=== PATIENT | female | born 1980 | race Caucasian/White ===

== ENCOUNTER 2020-03-09 12:14 | Outpatient (CLI) | payer OTHER, SELFPAY ==
[2020-03-09 12:53] LABS: Hemoglobin A1C 4.9 % (<5.7)
[2020-03-09 13:10] LABS: Beta HCG Quantitative < 2.39 mIU/ML
[2020-03-13 15:31] LABS: DHEA-Sulfate 213 mcg/dL (23-266)
[2020-03-14 05:10] LABS: Insulin Level Total 12.8 uIU/mL (<=19.6)
[2020-03-14 18:32] LABS: Estradiol, Ultrasensitive 16 pg/mL
[2020-03-15 10:02] LABS: Testosterone Free 3.3 pg/mL (0.1-6.4); Testosterone Total 31 ng/dL (2-45)
[2020-03-17 12:56] LABS: FSH 40.4 mIU/mL (***); LH 20.2 mIU/mL (***); Progesterone 0.3 ng/mL (***); Prolactin 4.8 ng/mL (***)
== END 2020-03-09 12:15 | disposition home or self-care (01) ==
PROVIDERS: Visit Provider Nurse Practitioner
DX: N91.2 Amenorrhea, unspecified (principal)
CPT/HCPCS: 36415; 82627; 82670; 83001; 83002; 83036; 83525; 84144; 84146; 84402; 84403; 84443; 84702

== ENCOUNTER 2020-03-12 15:16 | Outpatient (CLI) | payer OTHER, SELFPAY ==
--- NOTE | ~2020-03-12 | US_ITS ---
EXAMINATION: US pelvic complete w TV DATE: 03/12/2020 16:01 INDICATION: Amenorrhea Comparison:Ultrasound dated 08/24/2013 TECHNIQUE: Multiple transabdominal and endovaginal sonographic images of the pelvis performed. FINDINGS: The uterus measures 6.3 x 2.9 x 3.9 cm. The endometrial complex measures 5 mm. The ovaries are not visualized. Study limited by patient body habitus. There is no free fluid in the pelvis. There are no abnormal masses seen on either side. IMPRESSION: 1. Unremarkable pelvic ultrasound. Study limited by patient body habitus. Reviewed, dictated and finalized at location A.
== END 2020-03-12 15:17 | disposition home or self-care (01) ==
PROVIDERS: Visit Provider Nurse Practitioner
DX: N91.2 Amenorrhea, unspecified (principal)
CPT/HCPCS: 76830; 76856

== ENCOUNTER 2023-07-20 10:13 | Outpatient (CLI) | payer OTHER, SELFPAY ==
[2023-07-20 10:55] LABS: Hematocrit 41.8 % (37.0-47.0); Hemoglobin 13.6 g/dL (12.0-15.0); Mean Corpuscular HGB Conc 32.5 g/dl (32-36); Mean Corpuscular Hemoglobin 29.8 pg (26-34); Mean Corpuscular Volume 91.5 fl (80-100); Mean Platelet Volume 9.1 fl (7.4-10.4); Platelet Count Result 312 k/mm3 (150-375); Red Blood Count 4.57 M/mm3 (4.2-5.4); Red Cell Distribution Width 13.7 % (11.5-14.5); White Blood Count 7.4 K/mm3 (4.5-10.0)
[2023-07-20 11:13] LABS: Hemoglobin A1C 5.1 % (<5.7)
[2023-07-20 11:58] LABS: Alanine Aminotransferase 47 U/L (6-35); Albumin Level 4.2 g/dL (3.5-5.1); Alkaline Phosphatase 106 U/L (38-126); Anion Gap 3 mmol/L (8-16); Aspartate Amino Transferase 47 U/L (14-36); Bilirubin,Total 0.6 mg/dL (0.2-1.3); Blood Urea Nitrogen 10 mg/dL (7-17); Calcium 9.5 mg/dL (8.4-10.2); Carbon Dioxide 29 mmol/L (22-30); Chloride 106 mmol/L (98-107); Cholesterol 198 mg/dL (0-200); Estimated Glomerular Filt Rate > 60; Glucose 100 mg/dL (65-110); HDL Direct 50 mg/dL; Potassium 4.4 mmol/L (3.4-5.0); Sodium 138 mmol/L (137-145); Triglycerides 94 mg/dL (<150)
[2023-07-20 12:04] LABS: Vitamin D 25 Hydroxy < 12.8 ng/mL
[2023-07-20 12:11] LABS: LDL Cholesterol Direct 124 mg/dL
[2023-07-20 12:14] LABS: Beta HCG Quantitative < 2.39 mIU/ML
[2023-07-23 06:45] LABS: Insulin Level Total 13.3 uIU/mL (<=18.4)
[2023-07-24 12:05] LABS: Free T4 Free Thyroxine 0.49 ng/mL (0.78-2.19)
[2023-07-25 03:16] LABS: DHEA-Sulfate 113 mcg/dL (19-231); FSH 19.9 mIU/mL (***); LH 6.2 mIU/mL (***); Progesterone 0.3 ng/mL (***); Prolactin 4.6 ng/mL (***)
[2023-07-25 03:54] LABS: Testosterone Free 3.8 pg/mL (0.2-5.0)
[2023-07-26 20:28] LABS: Estradiol, Ultrasensitive 30 pg/mL
== END 2023-07-20 10:14 | disposition home or self-care (01) ==
LOC: ANHLAB 10:15
PROVIDERS: Visit Provider Obstetrics & Gynecology Gynecology
DX: Z01.419 Encounter for gynecological examination (general) (routine) without abnormal findings (principal); E28.2 Polycystic ovarian syndrome
CPT/HCPCS: 36415; 80053; 80061; 82306; 82607; 82627; 82670; 83001; 83002; 83036; 83525; 84144; 84146; 84402; 84439; 84443; 84702; 85027

== ENCOUNTER 2024-01-03 16:51 | Outpatient (CLI) | payer OTHER, SELFPAY ==
[2024-01-03 17:53] LABS: Free T4 Free Thyroxine 0.71 ng/mL (0.78-2.19)
[2024-01-03 20:07] LABS: Total Triiodothyronine (T3) 1.38 NG/ML (0.97-1.69)
[2024-01-05 10:29] LABS: Thyroid Peroxidase Antibodies 231 IU/mL (<9)
== END 2024-01-03 16:52 | disposition home or self-care (01) ==
LOC: ANHLAB 16:54
PROVIDERS: PCP Family Medicine; Visit Provider Family Medicine
DX: E03.9 Hypothyroidism, unspecified (principal); E07.9 Disorder of thyroid, unspecified
CPT/HCPCS: 36415; 84439; 84443; 84480; 86376

== ENCOUNTER 2024-01-04 17:04 | Outpatient (CLI) | payer OTHER, SELFPAY ==
[2024-01-04 18:01] LABS: Alanine Aminotransferase 23 U/L (6-35); Aspartate Amino Transferase 28 U/L (14-36)
== END 2024-01-04 17:05 | disposition home or self-care (01) ==
LOC: ANHLAB 17:09
PROVIDERS: PCP Family Medicine; Visit Provider Family Medicine
DX: R74.8 Abnormal levels of other serum enzymes (principal)
CPT/HCPCS: 36415; 84450; 84460

== ENCOUNTER 2024-01-18 16:51 | Outpatient (CLI) | payer OTHER, SELFPAY ==
--- NOTE | ~2024-01-18 | US_ITS ---
EXAMINATION: US thyroid DATE: 01/18/2024 17:30 INDICATION: Nontoxic goiter, unspecified. TECHNIQUE: Multiple ultrasound images of the thyroid were obtained. COMPARISON: None. FINDINGS: The right thyroid lobe measures 5.1 x 1.8 x 1.7 cm. The left thyroid lobe measures 4.6 x 1.5 x 2.1 c m. There is normal echotexture and echogenicity throughout the thyroid gland. No discrete nodules id entified. Normal vascular flow is present. IMPRESSION: 1. Normal thyroid. Reviewed, dictated and finalized at location A. IMPRESSION: 1. Normal thyroid.
== END 2024-01-18 16:52 | disposition home or self-care (01) ==
LOC: ANHIMG 16:52
PROVIDERS: PCP Family Medicine; Visit Provider Physician Assistant
DX: E04.9 Nontoxic goiter, unspecified (principal)
CPT/HCPCS: 76536

== ENCOUNTER 2024-01-24 16:54 | Outpatient (CLI) | payer OTHER, SELFPAY ==
[2024-01-26 04:24] LABS: ANA Cascade Screen NEGATIVE (NEGATIVE)
== END 2024-01-24 16:55 | disposition home or self-care (01) ==
LOC: ANHLAB 16:56
PROVIDERS: PCP Family Medicine; Visit Provider Physician Assistant
DX: R53.83 Other fatigue (principal); R21 Rash and other nonspecific skin eruption
CPT/HCPCS: 36415; 86038; 86225; 86235; 86364

== ENCOUNTER 2024-02-14 13:59 | Outpatient (CLI) | payer OTHER, SELFPAY ==
[2024-02-14 15:33] LABS: Thyroid Stimulating Hormone 0.929 uIU/mL (0.465-4.680)
[2024-02-14 15:41] LABS: Free T4 Free Thyroxine 1.21 ng/mL (0.78-2.19)
== END 2024-02-14 14:00 | disposition home or self-care (01) ==
PROVIDERS: PCP Family Medicine; Visit Provider Physician Assistant
DX: E03.9 Hypothyroidism, unspecified (principal)
CPT/HCPCS: 36415; 84439; 84443

== ENCOUNTER 2024-04-01 17:03 | Outpatient (CLI) | payer OTHER, SELFPAY ==
[2024-04-01 17:47] LABS: Basophils Absolute Auto 0.1 K/mm3 (0.0-0.1); Basophils Percent Auto 0.8 % (0.2-1.2); Eosinophils Absolute Auto 0.2 K/mm3 (0-0.3); Eosinophils Percent Auto 2.1 % (0-4.4); Hematocrit 39.8 % (37.0-47.0); Immature Granulocyte Absolute 0.06 K/mm3 (0.00-0.031); Immature Granulocyte Percent A 0.7 % (0-0.5); Lymphocytes Absolute Auto 2.44 K/mm3 (0.9-3.2); Lymphocytes Percent Auto 26.9 % (18.3-44.2); Mean Corpuscular HGB Conc 32.7 g/dl (32-36); Mean Corpuscular Hemoglobin 30.2 pg (26-34); Mean Corpuscular Volume 92.3 fl (80-100); Mean Platelet Volume 9.2 fl (7.4-10.4); Monocytes Absolute Auto 0.7 K/mm3 (0.1-0.6); Monocytes Percent Auto 7.3 % (2.6-8.5); Neutrophils Absolute Auto 5.7 K/mm3 (1.3-6.7); Neutrophils Percent Auto 62.2 % (45.5-73.1); Platelet Count Result 310 k/mm3 (150-375); Red Blood Count 4.31 M/mm3 (4.2-5.4); Red Cell Distribution Width 13.1 % (11.5-14.5); White Blood Count 9.1 K/mm3 (4.5-10.0)
[2024-04-01 17:54] LABS: Alanine Aminotransferase 41 U/L (6-35); Albumin Level 4.6 g/dL (3.5-5.1); Alkaline Phosphatase 100 U/L (38-126); Anion Gap 8 mmol/L (4-12); Aspartate Amino Transferase 40 U/L (14-36); Bilirubin,Total 0.8 mg/dL (0.2-1.3); Blood Urea Nitrogen 15 mg/dL (7-17); Calcium 9.8 mg/dL (8.4-10.2); Carbon Dioxide 29 mmol/L (22-30); Chloride 102 mmol/L (98-107); Estimated Glomerular Filt Rate > 60; Glucose 79 mg/dL (65-110); Potassium 4.1 mmol/L (3.4-5.0); Sodium 139 mmol/L (137-145)
[2024-04-01 18:42] LABS: Free T4 Free Thyroxine 0.81 ng/mL (0.78-2.19)
[2024-04-03 08:17] LABS: Thyroid Peroxidase Antibodies 104 IU/mL (<9)
[2024-04-03 19:44] LABS: Triiodothyronine T3 Free 3.1 pg/mL (2.3-4.2)
[2024-04-04 04:17] LABS: Immunoglobulin A 280 mg/dL (47-310); TTG IGA AB <1.0 U/mL
== END 2024-04-01 17:04 | disposition home or self-care (01) ==
LOC: ANHLAB 17:05
PROVIDERS: PCP Family Medicine; Visit Provider Physician Assistant
DX: R21 Rash and other nonspecific skin eruption (principal); E07.9 Disorder of thyroid, unspecified
CPT/HCPCS: 36415; 80053; 82784; 84439; 84443; 84481; 85025; 86364; 86376

== ENCOUNTER 2024-04-09 08:24 | Outpatient (CLI) | payer OTHER, SELFPAY ==
[2024-04-09 12:51] LABS: Cortisol Random 9.53 ug/dL
== END 2024-04-09 08:25 | disposition home or self-care (01) ==
LOC: ANHGOSHLAB 08:26
PROVIDERS: PCP Family Medicine
DX: E07.9 Disorder of thyroid, unspecified (principal)
CPT/HCPCS: 36415; 82024; 82533

== ENCOUNTER 2024-06-13 14:27 | Outpatient (CLI) | payer OTHER, SELFPAY ==
--- OUTSIDE RECORDS SUMMARY | 2024-06-13 15:04 | XMS_ITS | Clinical Summary ---
Author Organization [facility] Address [address] [place] [address]. [place] [address] [place] [address] Care Team Providers Care Cashier Host/Hostess Name Role Phone None, Provider MD Primary Care Provider Unavaila ble Allergies No known active allergies Medications albuterol sulfate HFA 108 (90 Base) MCG/ACT inhaler Inhale 2 puffs into the lungs every 6 (six) hours as needed for Wheezing. 8 g 03/28/2023 Active Social History Tobacco Use Types Packs/Day Years Used Date Smoking Tobacco: Never Smokeless Tobacco: Never Tobacco Cessation:Counseling Given: Not Answered Alcohol Use Standard Drinks/Week Comments Not Currently 0 (1 standard drink = 0.6 oz pur e alcohol) RARELY Comments Unknown Sex and Gender Information Value Date Recorded Sex Assigned at Not on file Legal Sex Female 8:25 PM CDT Gender Identity Not on file Sexual Orientation Not on file Last Filed Vital Signs Vital Sign Reading Time Taken Comments Blood Pressure 127/106 03/28/2023 12:41 PM [employer]PING [employer] SUPER[employer]OR Pulse 99 03/28/2023 12:41 PM [employer]PING [employer] SUPER[employer] Temperature 36.9 ??C (98.5 ??F) 03/28/2023 1 2:41 PM [employer]PING [employer] SUPER[employer]OR Respiratory Rate 20 03/28/2023 12:4 1 PM [employer]PING [employer]OR Oxygen Saturation 99% 03/28/2023 12: 41 PM [employer]PING TR[employer] SUPER[employer]OR Inhaled Oxygen Concentration - - Weight 136.8 kg (301 lb 9.4 oz) 023 12:43 PM [employer]PING [employer] SUPERVISOR Height 160 cm (5' 3 ) 03/28/2023 12:41 PM [employer]IPPING TR[employer] SUPERVISOR Body Mass Index 53.42 03/28/2023 12:41 PM [employer]PING TR[employer] SUPERVISOR Plan of Treatment Health Maintenance Due Date Last Done Comments Cervical Cancer Screening Pa p Smear (Age 30 to 64) Every 3 Years 1981 Annual Physical 1984 Hepatitis C 1999 DTaP, Tdap and Td Vaccines ( 1 - Tdap) 2000 Hepatitis B Vaccines (1 of 3 - 19+ 3-dose series) 2000 Cervical Cancer Screening Pa p with HPV Testing (Age 30 to 64) Every 5 Years 2011 Cervical Cancer Screening with HPV 2011 Mammogram Screening 2021 COVID-19 Vaccine (1 - 2023-2 5 season) 2024 Influenza Adult (#1) 2024 HPV Vaccines Aged Out No longer eligi ble based on patient's age to complete this topic Meningococcal B Vaccine Aged Out No l onger eligible based on patient's age to complete this topic Meningococcal Vaccine Aged Out No jaciel pasha eligible based on patient's age to complete this topic Pneumococcal Vaccine: Pediat rics (0 to 5 Years) and At-Risk Patients (6 to 64 Years) Aged Out No longer eligible b ased on patient's age to complete this topic RSV Immunizations Under 20 Months Aged Out No longer eligible based on patient's age to complete this topic Insurance Care Teams Cashier Host/Hostess Relationship Specialty Start Date End Date None, Provider, PCP - General 05/26/21
--- OUTSIDE RECORDS SUMMARY | 2024-06-13 15:04 | XMS_ITS | Referral Summary ---
Author Organization [facility] Address [address] [facility] [address] [place] [address] Phone Care Team Providers Care Political Organizer Name Role Phone Kristen Brown Primary Care Provid er Encounters Date Type Department Care Team Description 04/18/2024 Orders Only [facility] Endocrinology Metabolism and Lipid [address] [facility] 13th [place] [address] [place] [address] ProviderOrlando MD 04/17/2024 Orders Only [facility] Endocrinology Metabolism and Lipid 1 [facility] [address] [place] [phone] Irene Mcdaniel MD PhD Low serum cortisol level (Primary Dx) 04/16/2024 Orders Only [facility] Endocrinology Metabolism and Lipid 1 [facility] [address] [place] [address] Orlando Oscar MD 04/15/2024 Telephone [facility] Dermatology [address] [facility] [address] [place] [address] Jennifer Estrada, YVONNE Email from Dr. Linette Schultz-John octavio appt 04/10/2024 Telephone [facility] Endocrinology Metabolism and Lipid [address] [facility] 13th [place] [address] [place] [address] Gregoria Shepherd RN lab request sent 04/08/2024 1:40 PM SPINNING MACHINE OPERATOR Lab [facility] [address] [place] [address] Disorder of thyroid; Rash 04/08/2024 10:00 AM SPINNING MACHINE OPERATOR Office Visit [facility] Endocrinology Metabolism and Lipid [address] [facility] 13th [place] [address] [place] [address] Irene Mcdaniel MD PhD Rash (Primary Dx); Disorder of thyroid from Last 3 Months Allergies No known active allergies Medications cetirizine (ZyrTEC) 10 mg tablet TAKE 1 TABLET BY MOUTH TWICE DAILY NEEDED FOR ALLERGIES 4 Active clobetasoL (TEMOVATE) 0.05 % cream APPLY CREAM TOPICALLY TO AFFECTED AREAS OF THE LEGS ONE TO TWO TIMES DAILY (A TOTAL OF 2 GRAMS DAILY) FOR UP TO 2 CONSECUTIVE WEEKS, THEN TAKE A BREAK FOR 1-2 DAYS AND RESUME. AVOID FACE, ARMPIT, AND GROIN 4 Active hydrOXYzine (ATARAX) 25 mg tablet TAKE 1 TABLET BY MOUTH THREE TIMES DAILY NEEDED FOR ITCHING 4 Active COMMUNITY ADVOCATE Thyroid 30 mg tablet Take 1 tablet (30 mg total) by mouth daily 4 Active ergocalciferol (VITAMIN D) 50,000 unit capsuleIndicati ons:Disorder of thyroid Take 1 capsule (50,000 Units total) by mouth once a week 4 capsule 2 4 07/01/19 Active Active Problems Problem Noted Date Diagnosed Date Low serum cortisol level 04/17/2024 Social History Tobacco Use Types Packs/Day Years Used Date Smoking Tobacco: Never Smokeless Tobacco: Never Tobacco Cessation:Counseling Given: No Comments Unknown Sex and Gender Information Value Date Recorded Sex Assigned at Not on file Legal Sex Female 6:31 AM CDT Gender Identity Not on file Sexual Orientation Not on file Last Filed Vital Signs Vital Sign Reading Time Taken Comments Blood Pressure 116/84 04/08/2024 9:50 AM SPINNING MACHINE OPERATOR Pulse 70 04/08/2024 9:50 AM SPINNING MACHINE OPERATOR Temperature 36.7 ??C (98.1 ??F) 04/08/2024 9:50 AM CS T Respiratory Rate - - Oxygen Saturation - - Inhaled Oxygen Concentration - - Weight 131.2 kg (289 lb 3.2 oz) 04/08/2024 9:50 AM SPINNING MACHINE OPERATOR Height 160 cm (5' 3 ) 04/08/2024 9:50 AM SPINNING MACHINE OPERATOR Body Mass Index 51.23 04/08/2024 9:50 AM SPINNING MACHINE OPERATOR Plan of Treatment Not on file Procedures Procedure Name Priority Date/Time Associated Diagnosis Comments ADRENOCORTICOTROPIC HORMONE (ACTH) Routine 04/18/2024 3:07 PM SPINNING MACHINE OPERATOR DHEA Routine 04/16/2024 12:44 PM SPINNING MACHINE OPERATOR PROGESTERONE Routine 04/16/2024 12:44 PM SPINNING MACHINE OPERATOR LH - LUTEINIZING HORMONE, SERUM Routine 04/16/2024 12:44 PM SPINNING MACHINE OPERATOR INSULIN, TOTAL Routine 04/16/2024 12:44 PM SPINNING MACHINE OPERATOR HBA1C - HEMOGLOBIN A1C Routine 12:44 PM SPINNING MACHINE OPERATOR ACTH RANDOM - CORTROSYN STIMULATION TEST Routine 04/16/2024 12:44 PM SPINNING MACHINE OPERATOR CORTISOL Routine 04/16/2024 12:44 PM SPINNING MACHINE OPERATOR THYROID PEROXIDASE ANTIBODIES Routine 04/16/2024 12:44 PM SPINNING MACHINE OPERATOR CELIAC DISEASE COMPLETE PANEL Routine 04/16/2024 12:44 PM SPINNING MACHINE OPERATOR CBC WITH DIFFERENTIAL Routine 04/16/2024 12:41 PM SPINNING MACHINE OPERATOR CMP Routine 04/16/2024 12:41 PM SPINNING MACHINE OPERATOR LIPID PANEL Routine 04/16/2024 12:41 PM SPINNING MACHINE OPERATOR TESTOSTERONE, FREE AND TOTAL, SERUM Routine 04/16/2024 12:41 PM SPINNING MACHINE OPERATOR LH - LUTEINIZING HORMONE, SERUM Routine 04/16/2024 12:41 PM SPINNING MACHINE OPERATOR CORTISOL Routine 04/09/2024 12:36 PM SPINNING MACHINE OPERATOR Disorder of thyroid METANEPHRINES, FRACTIONATED FREE, BLOOD Routine 04/08/2024 12:09 PM SPINNING MACHINE OPERATOR Rash TESTOSTERONE, TOTAL AND FREE, SERUM Routine 04/08/2024 12:09 PM SPINNING MACHINE OPERATOR Disorder of thyroid PROLACTIN Routine 04/08/2024 12:09 PM SPINNING MACHINE OPERATOR Disorder of thyroid LIPID PANEL Routine 04/08/2024 12:09 PM SPINNING MACHINE OPERATOR Disorder of thyroid DHEA-SULFATE Routine 04/08/2024 12:09 PM SPINNING MACHINE OPERATOR Disorder of thyroid ANDROSTENEDIONE Routine 04/08/2024 12:09 PM SPINNING MACHINE OPERATOR Disorder of thyroid 17 HYDROXYPROGESTERONE Routine 12:09 PM SPINNING MACHINE OPERATOR Disorder of thyroid ESTRADIOL Routine 04/08/2024 12:09 PM SPINNING MACHINE OPERATOR Disorder of thyroid T4, FREE Routine 04/08/2024 12:09 PM SPINNING MACHINE OPERATOR Disorder of thyroid THYROID FUNCTION CASCADE Routine 024 12:09 PM SPINNING MACHINE OPERATOR Disorder of thyroid FOLLICLE STIMULATING HORMONE Routine 04/08/2024 12:09 PM SPINNING MACHINE OPERATOR Disorder of thyroid LUTEINIZING HORMONE (LH) Routine 024 12:09 PM SPINNING MACHINE OPERATOR Disorder of thyroid from Last 3 Months Results * Adrenocorticotropic Hormone (ACTH) (04/18/2024 3:07 PM SPINNING MACHINE OPERATOR) [facility] Provider MD LAB BLOOD ORDERABLES Brigette l Result Performing Organization Address [facility] de Phone Number EXTERNAL LAB * Celiac Disease Complete Panel (04/16/2024 12:44 PM SPINNING MACHINE OPERATOR) [facility] Provider MD LAB BLOOD ORDERABLES Brigette l Result Performing Organization Address [facility] de Phone Number EXTERNAL LAB * Thyroid Peroxidase Antibodies (04/16/2024 12:44 PM SPINNING MACHINE OPERATOR) [facility] Provider MD LAB BLOOD ORDERABLES Brigette l Result Performing Organization Address [facility] de Phone Number EXTERNAL LAB * LH - Luteinizing Hormone, Serum (04/16/2024 12:44 PM SPINNING MACHINE OPERATOR) [facility] Provider MD LAB BLOOD ORDERABLES Brigette l Result * HbA1c - Hemoglobin A1C (04/16/2024 12:44 PM SPINNING MACHINE OPERATOR) [facility] Provider MD LAB BLOOD ORDERABLES Brigette l Result * ACTH Random - Cortrosyn Stimulation Test (04/16/2024 12:44 PM SPINNING MACHINE OPERATOR) Result [facility] Provider MD LAB BLOOD ORDERABLES Brigette l Result * Progesterone (04/16/2024 12:44 PM SPINNING MACHINE OPERATOR) Blood Result [facility] Provider MD LAB BLOOD ORDERABLES Brigette l Result * Insulin, total (04/16/2024 12:44 PM SPINNING MACHINE OPERATOR) Blood Result [facility] Provider MD LAB BLOOD ORDERABLES Brigette l Result * DHEA (04/16/2024 12:44 PM SPINNING MACHINE OPERATOR) Blood Result [facility] MD LAB BLOOD ORDERABLES Brigette l Result * Cortisol (04/16/2024 12:44 PM SPINNING MACHINE OPERATOR) Blood Result [facility] MD LAB BLOOD ORDERABLES Brigette l Result Performing Organization Address [facility] Co de Phone Number EXTERNAL LAB * Testosterone, Free and Total, Serum (04/16/2024 12:41 PM SPINNING MACHINE OPERATOR) Result [facility] MD LAB BLOOD ORDERABLES Brigette l Result Performing Organization Address [facility] Co de Phone Number EXTERNAL LAB * LH - Luteinizing Hormone, Serum (04/16/2024 12:41 PM SPINNING MACHINE OPERATOR) Result [facility] Provider MD LAB BLOOD ORDERABLES Brigette l Result EXTERNAL LAB * CMP (04/16/2024 12:41 PM SPINNING MACHINE OPERATOR) Result [facility] MD LAB BLOOD ORDERABLES Brigette l Result Performing Organization Address [facility]/ZIP Co de Phone Number EXTERNAL LAB * CBC with Differential (04/16/2024 12:41 PM SPINNING MACHINE OPERATOR) Historical Provider MD LAB BLOOD ORDERABLES Brigette l Result EXTERNAL LAB * Lipid panel (04/16/2024 12:41 PM SPINNING MACHINE OPERATOR) Blood Historical Provider MD LAB BLOOD ORDERABLES Brigette l Result Performing Organization Address [facility]/ZIP Co de Phone Number EXTERNAL LAB * Cortisol (04/09/2024 12:36 PM SPINNING MACHINE OPERATOR) Blood Irene Blood MD PhD LAB BLOOD ORDERABLES Final Result Performing Organization Address [facility] Co de Phone Number EXTERNAL LAB * Metanephrines, fractionated free, blood (04/08/2024 12:09 PM SPINNING MACHINE OPERATOR) Metanephrines <0.20 <0.50 nmol/L [place] [facility] Comment: ADDITIONAL INFORMATION This test was developed and its performance characteristics determined by [facility] in a manner consistent with CLIA requirements. This test has not been cleared or approved by the U.S. Food and Drug Administration. Test Performed by: [facility] [place] [address] Inspector Filter Tip: Dalila Nicholson Ph.D.; CLIA# [id number] Normetanephrines 0.55 <0.90 nmol/L [facility] Blood 04/08/2024 12:0 9 PM SPINNING MACHINE OPERATOR 04/08/2024 12:43 PM SPINNING MACHINE OPERATOR Irene Blood MD PhD LAB BLOOD ORDERABLES Final Result Performing Organization Address [facility] Co de Phone Number [facility] [place] [address] [facility] ref [facility] * (ABNORMAL) Thyroid Function Willard (04/08/2024 12:09 PM SPINNING MACHINE OPERATOR) TSH 5.58(H) 0.30 - 4.20 mcIUnit/mL Blood 04/08/2024 12:0 9 PM SPINNING MACHINE OPERATOR 04/08/2024 12:43 PM SPINNING MACHINE OPERATOR Irene Blood MD PhD LAB BLOOD ORDERABLES Final Result Performing Organization Address [facility]/ZIP Co de Phone Number EBER [facility] [place] [address] * 17-Hydroxyprogesterone (04/08/2024 12:09 PM SPINNING MACHINE OPERATOR) 17-hydroxyprogestero ne <40 ng/dL [facility] Comment: REFERENCE VALUE < 80 (Follicular) <285 (Luteal) < 51 (Postmenopausal) ADDITIONAL INFORMATION This test was developed and its performance characteristics determined by [facility] in a manner consistent with CLIA requirements. This test has not been cleared or approved by the U.S. Food and Drug Administration. Test Performed by: [facility] [place] [address] Inspector Filter Tip: Dalila Nicholson Ph.D.; CLIA# [id number] Blood 04/08/2024 12:0 9 PM SPINNING MACHINE OPERATOR 04/08/2024 12:51 PM SPINNING MACHINE OPERATOR Irene Blood MD PhD LAB BLOOD ORDERABLES Final Result Performing Organization Address [facility]/ZIP Co de Phone Number E[facility] [place] [address] [facility] ref [facility] * (ABNORMAL) Prolactin (04/08/2024 12:09 PM SPINNING MACHINE OPERATOR) Prolactin 4.7(L) 4.8 - 23.3 ng/mL Blood 04/08/2024 12:0 9 PM SPINNING MACHINE OPERATOR 04/08/2024 12:43 PM SPINNING MACHINE OPERATOR Irene Blood MD PhD LAB BLOOD ORDERABLES Final Result Performing Organization Address [facility] Co de Phone Number [facility] [place] [address] * DHEA-sulfate (04/08/2024 12:09 PM SPINNING MACHINE OPERATOR) Pathologist [facility] DHEA-S 116.0 60.9 - 337.0 mcg/dL Blood 04/08/2024 12:0 9 PM SPINNING MACHINE OPERATOR 04/08/2024 12:43 PM SPINNING MACHINE OPERATOR Irene Blood MD PhD LAB BLOOD ORDERABLES Final Result Performing Organization Address [facility] de Phone Number [facility] [place] [address] * Estradiol (04/08/2024 12:09 PM SPINNING MACHINE OPERATOR) Pathologist [facility] Estradiol 14.9 pg/mL Comment: Interpretive Data Males: 11 ? 43 pg/mL Females: Premenopausal: 31 ? 533 pg/mL Postmenopausal: < 50 pg/mL Patients treated with Fluvestrant (Faslodex) should be tested using an alternate assay such as LC-MS due to potential for cross-reactivity. Estradiol varies widely throughout the menstrual cycle. Current interpretive data was last revised 2024. Blood 04/08/2024 12:0 9 PM SPINNING MACHINE OPERATOR 04/08/2024 12:43 PM SPINNING MACHINE OPERATOR Irene Blood MD PhD LAB BLOOD ORDERABLES Final Result Performing Organization Address [facility] Co de Phone Number [facility] [place] [address] * Androstenedione (04/08/2024 12:09 PM SPINNING MACHINE OPERATOR) Androstenedione 74 30 - 200 ng/dL [place] ref [facility] Comment: ADDITIONAL INFORMATION This test was developed and its performance characteristics determined by [facility] in a manner consistent with CLIA requirements. This test has not been cleared or approved by the U.S. Food and Drug Administration. Test Performed by: [facility] [address] Inspector Filter Tip: Dalila Nicholson Ph.D.; CLIA# [id number] Blood 04/08/2024 12:0 9 PM SPINNING MACHINE OPERATOR 04/08/2024 1:59 PM SPINNING MACHINE OPERATOR Irene Blood MD PhD LAB BLOOD ORDERABLES Final Result Performing Organization Address [facility] Co de Phone Number [facility] [place] [address] [facility] * Testosterone, Total and Free, Serum (04/08/2024 12:09 PM SPINNING MACHINE OPERATOR) Testosterone 32 8 - 60 ng/dL [place] ref [facility] Comment: ADDITIONAL INFORMATION Testing performed by Liquid Chromatography-Tandem Mass Spectrometry (LC-MS/MS). This test was developed and its performance characteristics determined by [facility] in a manner consistent with CLIA requirements. This test has not been cleared or approved by the U.S. Food and Drug Administration. Test Performed by: [facility] [place] [address] Inspector Filter Tip: Dalila Nicholson Ph.D.; CLIA# [id number] Testosterone, free 0.59 <0.13 - 0.98 ng/dL [facility] Comment: ADDITIONAL INFORMATION This test was developed and its performance characteristics determined by [facility] in a manner consistent with CLIA requirements. This test has not been cleared or approved by the U.S. Food and Drug Administration. Blood 04/08/2024 12:0 9 PM SPINNING MACHINE OPERATOR 04/08/2024 1:57 PM SPINNING MACHINE OPERATOR Irene Blood MD PhD LAB BLOOD ORDERABLES Final Result Performing Organization Address [facility]/ZIP Co de Phone Number [facility] [place] [address] [facility] * T4, free (04/08/2024 12:09 PM SPINNING MACHINE OPERATOR) Free T4 0.91 0.90 - 1.70 ng/dL Blood 04/08/2024 12:0 9 PM SPINNING MACHINE OPERATOR 04/08/2024 12:43 PM SPINNING MACHINE OPERATOR Irene Blood MD PhD LAB BLOOD ORDERABLES Final Result Performing Organization Address [facility] Co de Phone Number [facility] [place] [address] * LH (04/08/2024 12:09 PM SPINNING MACHINE OPERATOR) LH 19.4 IUnits/L Comment: Interpretive Data Males: ??Adults: ? 1.7 - 8.6 ?? IUnits/L Females: ?Follicular: ? 2.4 - 12.6 ??IUnits/L ??Ovulation: ? 14.0 - 95.6 ??IUnits/L ?Luteal: ? 1.0 - 11.4 ??IUnits/L ??Postmenopausal: 7.7 - 58.5 ??IUnits/L Current interpretive data was last revised on 2018. Blood 04/08/2024 12:0 9 PM SPINNING MACHINE OPERATOR 04/08/2024 12:43 PM SPINNING MACHINE OPERATOR Irene Blood MD PhD LAB BLOOD ORDERABLES Final Result Performing Organization Address [facility] Co de Phone Number [facility] [place] [address] * Follicle stimulating hormone (04/08/2024 12:09 PM SPINNING MACHINE OPERATOR) FSH 36.6 IUnits/L Comment: Interpretive Data Male: Adults: ?1.5 - 12.4 IUnits/L Female: ?? Follicular: ?3.5 - 12.5 IUnits/L Ovulation: ? 4.7 - 21.5 IUnits/L Luteal: ?1.7 - 7.7 IUnits/L Postmenopausal: 25.8 - 134.8 IUnits/L Current interpretive data was last revised 2015. Blood 04/08/2024 12:0 9 PM SPINNING MACHINE OPERATOR 04/08/2024 12:43 PM SPINNING MACHINE OPERATOR Irene Blood MD PhD LAB BLOOD ORDERABLES Final Result Performing Organization Address [facility] de Phone Number [facility] [place] [address] * Lipid panel (04/08/2024 12:09 PM SPINNING MACHINE OPERATOR) Cholesterol 184 30 - 199 mg/dL Comment: Interpretive Data Ages < or = 19 years ??Acceptable: ? <170 mg/dL ??Borderline high: ??170-199 mg/dL ??High: ? >or= 200 mg/dL Ages > or = 20 years ??Desirable: ?<200 mg/dL ??Borderline high: ??200-239 mg/dL ??High: ? >or= 240 mg/dL Literature References: 1. Expert Panel on Integrated Guidelines for Cardiovascular Health and Risk Reduction in Children and Adolescents. Pediatrics 2011;128:S213 2. NCEP Expert Panel. Circulation 2004;110:227 Current Interpretive Data was last revised on 2018. Triglycerides 58 <=149 mg/dL [facility] Comment: Interpretive Data Ages < or = 9 years ??Acceptable: ? <75 mg/dL ??Borderline high: ??75-99 mg/dL ??High: ? >or= 100 mg/dL Ages 10 to 20 years ??Acceptable: ? <90 mg/dL ??Borderline high: ??90-129 mg/dL ??High: ? >or= 130 mg/dL Ages > or = 20 years ??Desirable: ?<150 mg/dL ??Borderline high: ??150-199 mg/dL ??High: ? 200-499 mg/dL ?Very high: ?? >or= 499 mg/dL Literature References: 1. Expert Panel on Integrated Guidelines for Cardiovascular Health and Risk Reduction in Children and Adolescents. Pediatrics 2011;128:S213 2. NCEP Expert Panel. Circulation 2004;110:227 Current Interpretive Data was last revised on 2018. HDL 60 >=40 mg/dL [facility] Comment: Interpretive Data Ages < or = 19 years ??Acceptable: ? >45 mg/dL ??Borderline low: ?? 40-45 mg/dL ??Low: ? <40 mg/dL Ages > or = 20 years ??Desirable: ?>or= 60 mg/dL ??Low: ? <40 mg/dL Literature References: 1. Expert Panel on Integrated Guidelines for Cardiovascular Health and Risk Reduction in Children and Adolescents. Pediatrics 2011;128:S213 2. NCEP Expert Panel. Circulation 2004;110:227 Current Interpretive Data was last revised on 2018. LDL, calculated 113 <=129 mg/dL [facility] Comment: Interpretive Data Ages < or = 19 years ??Acceptable: ? <110 mg/dL ??Borderline high: ??110-129 mg/dL ??High: ?>or= 130 mg/dL Ages > or = 20 years ??Optimal: ? <100 mg/dL ??Near optimal: ?100-129 mg/dL ??Borderline high: ?? 130-159 mg/dL ??High: ?>160 mg/dL Calculated using the Rosalio LDL-C estimating equation. This equation was implemented on 2024. Prior to this date LDL-C was estimated using the Friedewald equation. Literature References: 1. Expert Panel on Integrated Guidelines for Cardiovascular Health and Risk Reduction in Children and Adolescents. Pediatrics 2011;128:S213 2. NCEP Expert Panel. Circulation 2004;110:227 3. Rosalio Flowers et al. JAKE Cardiol. 2019September 12;5(5):540-548. doi: 10.1001/[email or web address] Current Interpretive Data was last revised on 2024. Non-HDL Cholesterol 124 mg/dL [facility] Comment: Interpretive Data Ages < or = 19 years ??Acceptable: ?<120 mg/dL ??Borderline high: ??120-144 mg/dL ??High: ?>145 mg/dL Ages > or = 20 years ??When triglycerides are >200 mg/dL, Non-HDL cholesterol is a secondary target of ? therapy with treatment goals that are 30 mg/dL greater than the LDL cholesterol target. ? Literature References: 1. Expert Panel on Integrated Guidelines for Cardiovascular Health and Risk Reduction in Children and Adolescents. Pediatrics 2011;128:S213 2. NCEP Expert Panel. Circulation 2004;110:227 Current Interpretive Data was last revised on 2018. Chol/HDL ratio [address] [facility] [facility] Blood 04/08/2024 12:0 9 PM SPINNING MACHINE OPERATOR 04/08/2024 12:43 PM SPINNING MACHINE OPERATOR Irene Blood MD PhD LAB BLOOD ORDERABLES Final Result [facility] [place] [address] from Last 3 Months Insurance [facility] Care Teams Political Organizer Relationship Specialty Start Date End [place] [address] [address] PCP - General Physician Antique Collector 04/04/24
--- OUTSIDE RECORDS SUMMARY | 2024-06-13 15:04 | XMS_ITS | Clinical Summary ---
Author Organization [facility] Address [address] [place] [address] Phone Care Team Providers Care Physician Locums Urgent Care Name Role Phone Kristen Brown Primary Care Provid er Allergies No known active allergies Medications cetirizine [...] TIMES DAILY NEEDED FOR ITCHING 4 Active [employer]IVER Thyroid 30 mg tablet Take 1 tablet (30 mg total) by mouth daily 4 Active ergocalciferol (VITAMIN D) 50,000 unit capsuleIndicati ons:Disorder of thyroid Take 1 capsule (50,000 Units total) by mouth once a week 4 capsule 2 4 07/01/19 25 Active Active Problems Problem Noted Date Diagnosed Date Low serum cortisol level 04/17/2024 Encounters Date Type Department Care Team Description 04/18/[address] [facility] Endocrinology Metabolism and Lipid [address] [facility] 13[address] [place] [address] [place] [address] Provider, MD [place] 04/17/[address] [facility] Endocrinology Metabolism and Lipid [address] [facility] [address] [place] [phone] Irene Mcdaniel MD PhD Low serum cortisol level (Primary Dx) 04/16/[address] [facility] Endocrinology Metabolism and Lipid [address] [facility] [address] [place] [phone] ProviderOrlando MD 04/15/[address] [facility] Dermatology [address] [facility] [address] [place] [phone] Jennifer Estrada, A Email from Dr. Linette Schultz-John octavio appt 04/10/[address] [facility] Endocrinology Metabolism and Lipid [address] [facility] 13[address] [place] [address] [place] [address] Gregoria Shepherd RN lab request sent 04/08/2024 1:40 PM CELEBRITY CHEF ENTREPRENEUR MEDIA PERSONALITY Lab [facility] Advanced Medicine (CAM) [address] [place] [phone] Disorder of thyroid; Rash 04/08/2024 10:00 AM CELEBRITY CHEF ENTREPRENEUR MEDIA PERSONALITY Office Visit [facility] Endocrinology Metabolism and Lipid [address] [facility] 13[address] [place] [address] [place] [address] Irene Mcdaniel MD PhD Rash (Primary Dx); Disorder of thyroid from Last 3 Months Surgical History Surgery Date Site/Laterality Comments CHOLECYSTECTOMY Medical History Medical History Date Comments Hypothyroidism Family History Medical History Relation Name Comments Depression Mother Diabetes Mother Relation Name Status Comments Mother Paternal Grandmother Alive Social History Tobacco Use Types Packs/Day Years Used Date Smoking Tobacco: Never Smokeless Tobacco: Never Tobacco Cessation:Counseling Given: No Comments Unknown Sex and Gender Information Value Date Recorded Sex Assigned at Not on file Legal Sex Female 6:31 AM CDT Gender Identity Not on file Sexual Orientation Not on file Obstetrics History Last Filed Vital Signs Vital Sign Reading Time Taken Comments Blood Pressure 116/84 04/08/2024 9:50 AM CELEBRITY CHEF ENTREPRENEUR MEDIA PERSONALITY Pulse 70 04/08/2024 9:50 AM CELEBRITY CHEF ENTREPRENEUR MEDIA PERSONALITY Temperature 36.7 ??C (98.1 ??F) 04/08/2024 9:50 AM CS T Respiratory Rate - - Oxygen Saturation - - Inhaled Oxygen Concentration - - Weight 131.2 kg (289 lb 3.2 oz) 04/08/2024 9:50 AM CELEBRITY CHEF ENTREPRENEUR MEDIA PERSONALITY Height 160 cm (5' 3 ) 04/08/2024 9:50 AM CELEBRITY CHEF ENTREPRENEUR MEDIA PERSONALITY Body Mass Index 51.23 04/08/2024 9:50 AM CELEBRITY CHEF ENTREPRENEUR MEDIA PERSONALITY Plan of Treatment Health Maintenance Due Date Last Done Comments Breast Cancer Screening-Mammogram 1981 Cervical Cancer Screening 1981 Depression Screening 1981 Hepatitis C Screening 1981 DTaP/Tdap/Td Vaccine (1 - Tdap) 1992 Varicella Vaccines (1 of 2 - 13+ 2-dose series) 1994 Hepatitis B Screening 1999 Regular Well Visit/Exam 18-64 1999 Influenza Vaccine Completed 02/15/2024 HPV Vaccines Aged Out No longer eligi ble based on patient's age to complete this topic Pneumococcal vaccine <65 Aged Out No longer eligible based on patient's age to complete this topic Procedures Procedure Name Priority Date/Time Associated Diagnosis Comments ADRENOCORTICOTROPIC HORMONE (ACTH) Routine 04/18/2024 3:07 PM CELEBRITY CHEF ENTREPRENEUR MEDIA PERSONALITY DHEA Routine 04/16/2024 12:44 PM CELEBRITY CHEF ENTREPRENEUR MEDIA PERSONALITY PROGESTERONE Routine 04/16/2024 12:44 PM CELEBRITY CHEF ENTREPRENEUR MEDIA PERSONALITY LH - LUTEINIZING HORMONE, SERUM Routine 04/16/2024 12:44 PM CELEBRITY CHEF ENTREPRENEUR MEDIA PERSONALITY INSULIN, TOTAL Routine 04/16/2024 12:44 PM CELEBRITY CHEF ENTREPRENEUR MEDIA PERSONALITY HBA1C - HEMOGLOBIN A1C Routine 12:44 PM CELEBRITY CHEF ENTREPRENEUR MEDIA PERSONALITY ACTH RANDOM - CORTROSYN STIMULATION TEST Routine 04/16/2024 12:44 PM CELEBRITY CHEF ENTREPRENEUR MEDIA PERSONALITY CORTISOL Routine 04/16/2024 12:44 PM CELEBRITY CHEF ENTREPRENEUR MEDIA PERSONALITY THYROID PEROXIDASE ANTIBODIES Routine 04/16/2024 12:44 PM CELEBRITY CHEF ENTREPRENEUR MEDIA PERSONALITY CELIAC DISEASE COMPLETE PANEL Routine 04/16/2024 12:44 PM CELEBRITY CHEF ENTREPRENEUR MEDIA PERSONALITY CBC WITH DIFFERENTIAL Routine 04/16/2024 12:41 PM CELEBRITY CHEF ENTREPRENEUR MEDIA PERSONALITY CMP Routine 04/16/2024 12:41 PM CELEBRITY CHEF ENTREPRENEUR MEDIA PERSONALITY LIPID PANEL Routine 04/16/2024 12:41 PM CELEBRITY CHEF ENTREPRENEUR MEDIA PERSONALITY TESTOSTERONE, FREE AND TOTAL, SERUM Routine 04/16/2024 12:41 PM CELEBRITY CHEF ENTREPRENEUR MEDIA PERSONALITY LH - LUTEINIZING HORMONE, SERUM Routine 04/16/2024 12:41 PM CELEBRITY CHEF ENTREPRENEUR MEDIA PERSONALITY CORTISOL Routine 04/09/2024 12:36 PM CELEBRITY CHEF ENTREPRENEUR MEDIA PERSONALITY Disorder of thyroid METANEPHRINES, FRACTIONATED FREE, BLOOD Routine 04/08/2024 12:09 PM CELEBRITY CHEF ENTREPRENEUR MEDIA PERSONALITY Rash TESTOSTERONE, TOTAL AND FREE, SERUM Routine 04/08/2024 12:09 PM CELEBRITY CHEF ENTREPRENEUR MEDIA PERSONALITY Disorder of thyroid PROLACTIN Routine 04/08/2024 12:09 PM CELEBRITY CHEF ENTREPRENEUR MEDIA PERSONALITY Disorder of thyroid LIPID PANEL Routine 04/08/2024 12:09 PM CELEBRITY CHEF ENTREPRENEUR MEDIA PERSONALITY Disorder of thyroid DHEA-SULFATE Routine 04/08/2024 12:09 PM CELEBRITY CHEF ENTREPRENEUR MEDIA PERSONALITY Disorder of thyroid ANDROSTENEDIONE Routine 04/08/2024 12:09 PM CELEBRITY CHEF ENTREPRENEUR MEDIA PERSONALITY Disorder of thyroid 17 HYDROXYPROGESTERONE Routine 12:09 PM CELEBRITY CHEF ENTREPRENEUR MEDIA PERSONALITY Disorder of thyroid ESTRADIOL Routine 04/08/2024 12:09 PM CELEBRITY CHEF ENTREPRENEUR MEDIA PERSONALITY Disorder of thyroid T4, FREE Routine 04/08/2024 12:09 PM CELEBRITY CHEF ENTREPRENEUR MEDIA PERSONALITY Disorder of thyroid THYROID FUNCTION CASCADE Routine 024 12:09 PM CELEBRITY CHEF ENTREPRENEUR MEDIA PERSONALITY Disorder of thyroid FOLLICLE STIMULATING HORMONE Routine 04/08/2024 12:09 PM CELEBRITY CHEF ENTREPRENEUR MEDIA PERSONALITY Disorder of thyroid LUTEINIZING HORMONE (LH) Routine 024 12:09 PM CELEBRITY CHEF ENTREPRENEUR MEDIA PERSONALITY Disorder of thyroid from Last 3 Months Results * Adrenocorticotropic Hormone (ACTH) (04/18/2024 3:07 PM CELEBRITY CHEF ENTREPRENEUR MEDIA PERSONALITY) us Historical Provider MD LAB BLOOD ORDERABLES Brigette l Result EXTERNAL LAB * Celiac Disease Complete Panel (04/16/2024 12:44 PM CELEBRITY CHEF ENTREPRENEUR MEDIA PERSONALITY) us Historical Provider MD LAB BLOOD ORDERABLES Brigette l Result EXTERNAL LAB * Thyroid Peroxidase Antibodies (04/16/2024 12:44 PM CELEBRITY CHEF ENTREPRENEUR MEDIA PERSONALITY) Result [facility] Provider MD LAB BLOOD ORDERABLES Brigette l Result EXTERNAL LAB * LH - Luteinizing Hormone, Serum (04/16/2024 12:44 PM CELEBRITY CHEF ENTREPRENEUR MEDIA PERSONALITY) Result [facility] MD LAB BLOOD ORDERABLES Brigette l Result * HbA1c - Hemoglobin A1C (04/16/2024 12:44 PM CELEBRITY CHEF ENTREPRENEUR MEDIA PERSONALITY) Result [facility] MD LAB BLOOD ORDERABLES Brigette l Result * ACTH Random - Cortrosyn Stimulation Test (04/16/2024 12:44 PM CELEBRITY CHEF ENTREPRENEUR MEDIA PERSONALITY) Result [facility] MD LAB BLOOD ORDERABLES Brigette l Result * Progesterone (04/16/2024 12:44 PM CELEBRITY CHEF ENTREPRENEUR MEDIA PERSONALITY) Blood Result [facility] MD LAB BLOOD ORDERABLES Brigette l Result * Insulin, total (04/16/2024 12:44 PM CELEBRITY CHEF ENTREPRENEUR MEDIA PERSONALITY) Blood Result [facility] MD LAB BLOOD ORDERABLES Brigette l Result * DHEA (04/16/2024 12:44 PM CELEBRITY CHEF ENTREPRENEUR MEDIA PERSONALITY) Blood Result [facility] MD LAB BLOOD ORDERABLES Brigette l Result * Cortisol (04/16/2024 12:44 PM CELEBRITY CHEF ENTREPRENEUR MEDIA PERSONALITY) Blood Result [facility] MD LAB BLOOD ORDERABLES Brigette l Result EXTERNAL LAB * Testosterone, Free and Total, Serum (04/16/2024 12:41 PM CELEBRITY CHEF ENTREPRENEUR MEDIA PERSONALITY) Historical Provider MD LAB BLOOD ORDERABLES Brigette l Result Performing Organization Address City/[facility] Co de Phone Number EXTERNAL LAB * LH - Luteinizing Hormone, Serum (04/16/2024 12:41 PM CELEBRITY CHEF ENTREPRENEUR MEDIA PERSONALITY) Historical Provider MD LAB BLOOD ORDERABLES Brigette l Result Performing Organization Address City/[facility] Co de Phone Number EXTERNAL LAB * CMP (04/16/2024 12:41 PM CELEBRITY CHEF ENTREPRENEUR MEDIA PERSONALITY) Historical Provider MD LAB BLOOD ORDERABLES Brigette l Result Performing Organization Address City/[facility] Co de Phone Number EXTERNAL LAB * CBC with Differential (04/16/2024 12:41 PM CELEBRITY CHEF ENTREPRENEUR MEDIA PERSONALITY) [facility] Provider MD LAB BLOOD ORDERABLES Brigette l Result Performing Organization Address [facility] Co de Phone Number EXTERNAL LAB * Lipid panel (04/16/2024 12:41 PM CELEBRITY CHEF ENTREPRENEUR MEDIA PERSONALITY) Blood Result [facility] Provider MD LAB BLOOD ORDERABLES Brigette l Result Performing Organization Address [facility] Co de Phone Number EXTERNAL LAB * Cortisol (04/09/2024 12:36 PM CELEBRITY CHEF ENTREPRENEUR MEDIA PERSONALITY) Blood Irene Blood MD PhD LAB BLOOD ORDERABLES Final Result Performing Organization Address City/[facility] Co de Phone Number EXTERNAL LAB * Metanephrines, fractionated free, blood (04/08/2024 12:09 PM CELEBRITY CHEF ENTREPRENEUR MEDIA PERSONALITY) Metanephrines <0.20 <0.50 nmol/L [facility] Comment: ADDITIONAL INFORMATION This test was developed and its performance characteristics determined by [facility] in a manner consistent with CLIA requirements. This test has not been cleared or approved by the U.S. Food and Drug Administration. Test Performed by: [facility] Laboratories - [facility] [address] [place] [address] Policy Value Calculator: Dalila Nicholson Ph.D.; CLIA# [id number] Normetanephrines 0.55 <0.90 nmol/L [facility] Blood 04/08/2024 12:0 9 PM CELEBRITY CHEF ENTREPRENEUR MEDIA PERSONALITY 04/08/2024 12:43 PM CELEBRITY CHEF ENTREPRENEUR MEDIA PERSONALITY Irene Blood MD PhD LAB BLOOD ORDERABLES Final Result [facility] Department [place] [employer] [place] [address] [facility] * (ABNORMAL) Thyroid Function [place] (04/08/2024 12:09 PM CELEBRITY CHEF ENTREPRENEUR MEDIA PERSONALITY) Pathologist [facility] TSH 5.58(H) 0.30 - 4.20 mcIUnit/mL Blood 04/08/2024 12:0 9 PM CELEBRITY CHEF ENTREPRENEUR MEDIA PERSONALITY 04/08/2024 12:43 PM CELEBRITY CHEF ENTREPRENEUR MEDIA PERSONALITY Irene Blood MD PhD LAB BLOOD ORDERABLES Final Result [facility] [place] [address] * 17-Hydroxyprogesterone (04/08/2024 12:09 PM CELEBRITY CHEF ENTREPRENEUR MEDIA PERSONALITY) 17-hydroxyprogestero ne <40 ng/dL [facility] Comment: REFERENCE VALUE < 80 (Follicular) <285 (Luteal) < 51 (Postmenopausal) ADDITIONAL INFORMATION This test was developed and its performance characteristics determined by [facility] in a manner consistent with CLIA requirements. This test has not been cleared or approved by the U.S. Food and Drug Administration. Test Performed by: [facility] [address] [place] [address] Policy Value Calculator: Dalila Nicholson Ph.D.; CLIA# [id number] Blood 04/08/2024 12:0 9 PM CELEBRITY CHEF ENTREPRENEUR MEDIA PERSONALITY 04/08/2024 12:51 PM CELEBRITY CHEF ENTREPRENEUR MEDIA PERSONALITY Irene Blood MD PhD LAB BLOOD ORDERABLES Final Result [facility] [place] [employer] [place] [address] [facility] ref [facility] * (ABNORMAL) Prolactin (04/08/2024 12:09 PM CELEBRITY CHEF ENTREPRENEUR MEDIA PERSONALITY) Prolactin 4.7(L) 4.8 - 23.3 ng/mL Blood 04/08/2024 12:0 9 PM CELEBRITY CHEF ENTREPRENEUR MEDIA PERSONALITY 04/08/2024 12:43 PM CELEBRITY CHEF ENTREPRENEUR MEDIA PERSONALITY Irene Blood MD PhD LAB BLOOD ORDERABLES Final Result Performing Organization Address City/[facility]/ZIP Co de Phone Number [facility] [place] [address] * DHEA-sulfate (04/08/2024 12:09 PM CELEBRITY CHEF ENTREPRENEUR MEDIA PERSONALITY) DHEA-S 116.0 60.9 - 337.0 mcg/dL Blood 04/08/2024 12:0 9 PM CELEBRITY CHEF ENTREPRENEUR MEDIA PERSONALITY 04/08/2024 12:43 PM CELEBRITY CHEF ENTREPRENEUR MEDIA PERSONALITY Irene Blood MD PhD LAB BLOOD ORDERABLES Final Result Performing Organization Address City/[facility]/ZIP Co de Phone Number [facility] [place] [employer] [place] [address] * Estradiol (04/08/2024 12:09 PM CELEBRITY CHEF ENTREPRENEUR MEDIA PERSONALITY) Estradiol 14.9 pg/mL Comment: Interpretive Data Males: 11 ? 43 pg/mL Females: Premenopausal: 31 ? 533 pg/mL Postmenopausal: < 50 pg/mL Patients treated with Fluvestrant (Faslodex) should be tested using an alternate assay such as LC-MS due to potential for cross-reactivity. Estradiol varies widely throughout the menstrual cycle. Current interpretive data was last revised 2024. Blood 04/08/2024 12:0 9 PM CELEBRITY CHEF ENTREPRENEUR MEDIA PERSONALITY 04/08/2024 12:43 PM CELEBRITY CHEF ENTREPRENEUR MEDIA PERSONALITY Irene Blood MD PhD LAB BLOOD ORDERABLES Final Result Performing Organization Address [facility] Co de Phone Number [facility] [employer] [place] [address] * Androstenedione (04/08/2024 12:09 PM CELEBRITY CHEF ENTREPRENEUR MEDIA PERSONALITY) Pathologist [facility] Androstenedione 74 30 - 200 ng/dL [facility] Comment: ADDITIONAL INFORMATION This test was developed and its performance characteristics determined by [facility] in a manner consistent with CLIA requirements. This test has not been cleared or approved by the U.S. Food and Drug Administration. Test Performed by: [address] [address] Policy Value Calculator: Dalila Nicholson Ph.D.; CLIA# [id number] Blood 04/08/2024 12:0 9 PM CELEBRITY CHEF ENTREPRENEUR MEDIA PERSONALITY 04/08/2024 1:59 PM CELEBRITY CHEF ENTREPRENEUR MEDIA PERSONALITY Irene Blood MD PhD LAB BLOOD ORDERABLES Final Result Performing Organization Address [facility] Co de Phone Number [facility] [place] [address] [facility] * Testosterone, Total and Free, Serum (04/08/2024 12:09 PM CELEBRITY CHEF ENTREPRENEUR MEDIA PERSONALITY) Testosterone 32 8 - 60 ng/dL [facility] Comment: ADDITIONAL INFORMATION Testing performed by Liquid Chromatography-Tandem Mass Spectrometry (LC-MS/MS). This test was developed and its performance characteristics determined by [facility] in a manner consistent with CLIA requirements. This test has not been cleared or approved by the U.S. Food and Drug Administration. Test Performed by: [facility] [address] [place] [address] Policy Value Calculator: Dalila Nicholson Ph.D.; CLIA# [id number] Testosterone, free 0.59 <0.13 - 0.98 ng/dL [facility] Comment: ADDITIONAL INFORMATION This test was developed and its performance characteristics determined by [facility] in a manner consistent with CLIA requirements. This test has not been cleared or approved by the U.S. Food and Drug Administration. Blood 04/08/2024 12:0 9 PM CELEBRITY CHEF ENTREPRENEUR MEDIA PERSONALITY 04/08/2024 1:57 PM CELEBRITY CHEF ENTREPRENEUR MEDIA PERSONALITY us Irene Blood MD PhD LAB BLOOD ORDERABLES Final Result [facility] [place] [address] [facility] * T4, free (04/08/2024 12:09 PM CELEBRITY CHEF ENTREPRENEUR MEDIA PERSONALITY) Free T4 0.91 0.90 - 1.70 ng/dL Blood 04/08/2024 12:0 9 PM CELEBRITY CHEF ENTREPRENEUR MEDIA PERSONALITY 04/08/2024 12:43 PM CELEBRITY CHEF ENTREPRENEUR MEDIA PERSONALITY Irene Blood MD PhD LAB BLOOD ORDERABLES Final Result Performing Organization Address [facility] Co de Phone Number [facility] [place] [address] * LH (04/08/2024 12:09 PM CELEBRITY CHEF ENTREPRENEUR MEDIA PERSONALITY) LH 19.4 IUnits/L Comment: Interpretive Data Males: ??Adults: ? 1.7 - 8.6 ?? IUnits/L Females: ?Follicular: ? 2.4 - 12.6 ??IUnits/L ??Ovulation: ? 14.0 - 95.6 ??IUnits/L ?Luteal: ? 1.0 - 11.4 ??IUnits/L ??Postmenopausal: 7.7 - 58.5 ??IUnits/L Current interpretive data was last revised on 2018. Blood 04/08/2024 12:0 9 PM CELEBRITY CHEF ENTREPRENEUR MEDIA PERSONALITY 04/08/2024 12:43 PM CELEBRITY CHEF ENTREPRENEUR MEDIA PERSONALITY Irene Blood MD PhD LAB BLOOD ORDERABLES Final Result Performing Organization Address [facility] de Phone Number [facility] Department [place] [address] * Follicle stimulating hormone (04/08/2024 12:09 PM CELEBRITY CHEF ENTREPRENEUR MEDIA PERSONALITY) FSH 36.6 IUnits/L Comment: Interpretive Data Male: Adults: ?1.5 - 12.4 IUnits/L Female: ?? Follicular: ?3.5 - 12.5 IUnits/L Ovulation: ? 4.7 - 21.5 IUnits/L Luteal: ?1.7 - 7.7 IUnits/L Postmenopausal: 25.8 - 134.8 IUnits/L Current interpretive data was last revised 2015. Blood 04/08/2024 12:0 9 PM CELEBRITY CHEF ENTREPRENEUR MEDIA PERSONALITY 04/08/2024 12:43 PM CELEBRITY CHEF ENTREPRENEUR MEDIA PERSONALITY us Irene Blood MD PhD LAB BLOOD ORDERABLES Final Result [facility] [place] [address] * Lipid panel (04/08/2024 12:09 PM CELEBRITY CHEF ENTREPRENEUR MEDIA PERSONALITY) Cholesterol 184 30 - 199 mg/dL Comment: [...] revised on 2018. Triglycerides 58 <=149 mg/dL [facility] Comment: Interpretive Data Ages < or = [...] revised on 2018. HDL 60 >=40 mg/dL [facility] Comment: Interpretive Data Ages < or = [...] on 2018. LDL, calculated 113 <=129 mg/dL [facility] Comment: Interpretive Data Ages < or = [...] 3. Rosalio Flowers et al. JAKE Cardiol. 2020 September 12;5(5):540-548. doi: [email or web address] Current Interpretive Data was last revised on 2024. Non-HDL Cholesterol 124 mg/dL [facility] Comment: Interpretive Data Ages < or = [...] last revised on 2018. Chol/HDL ratio 3 [facility] Blood 04/08/2024 12:0 9 PM CELEBRITY CHEF ENTREPRENEUR MEDIA PERSONALITY 04/08/2024 12:43 PM CELEBRITY CHEF ENTREPRENEUR MEDIA PERSONALITY Irene Blood MD PhD LAB BLOOD ORDERABLES Final Result [facility] [place] [address] from Last 3 Months Insurance [facility] Care Teams Physician Locums Urgent Care Relationship Specialty Start Date End Date Kristen Brown PA [address] [facility] [address] [place] [address] PCP - General Physician Yardmaster 04/04/24
[2024-06-13 16:36] LABS: Influenza A QL RT-PCR Negative (Negative); Influenza B QL RT-PCR Negative (Negative); RSV RNA, RT-PCR Negative (Negative); SARS-CoV-2 RNA PCR Negative (Negative)
== END 2024-06-13 14:28 | disposition home or self-care (01) ==
LOC: ANHGOSHLAB 14:29
PROVIDERS: PCP Family Medicine; Visit Provider Physician Assistant
DX: J02.9 Acute pharyngitis, unspecified (principal); R05.9 Cough, unspecified; Z20.822 Contact with and (suspected) exposure to COVID-19
CPT/HCPCS: 87637

== ENCOUNTER 2024-08-12 14:48 | Outpatient (CLI) | payer OTHER, SELFPAY ==
--- OUTSIDE RECORDS SUMMARY | 2024-08-12 16:21 | XMS_ITS | Clinical Summary ---
Author Organization [facility] Address [address] [place] [address] Phone Care Team Providers Care Brush Cleaner Name Role Phone Kristen Brown Primary Care [...] TIMES DAILY NEEDED FOR ITCHING 4 Active CANDLE MOLDER Thyroid 30 mg tablet Take 1 tablet (30 mg total) by mouth daily 4 Active ergocalciferol (VITAMIN D) 50,000 unit capsuleIndicati ons:Disorder of thyroid Take 1 capsule (50,000 Units total) by mouth once a week 4 capsule 2 4 Active Active Problems Problem Noted Date Diagnosed Date Low serum cortisol level 04/17/2024 Surgical History Surgery Date Site/Laterality Comments CHOLECYSTECTOMY [...] Comments Blood Pressure 116/84 04/08/2024 9:50 AM DIFFUSER OPERATOR Pulse 70 04/08/2024 9:50 AM DIFFUSER OPERATOR Temperature 36.7 C (98.1 F) 04/08/2024 9:50 AM DIFFUSER OPERATOR Respiratory Rate - - Oxygen Saturation - - Inhaled Oxygen Concentration - - Weight 131.2 kg (289 lb 3.2 oz) 04/08/2024 9:50 AM DIFFUSER OPERATOR Height 160 cm (5' 3 ) 04/08/2024 9:50 AM DIFFUSER OPERATOR Body Mass Index 51.23 04/08/2024 9:50 AM DIFFUSER OPERATOR Plan of Treatment Health Maintenance Due Date [...] patient's age to complete this topic Insurance [facility] Care Teams Brush Cleaner Relationship Specialty Start Date End Date Kristen Brown PA [address] [facility] [address] [place] [address] PCP - General Physician Base Filler 04/04/24
--- OUTSIDE RECORDS SUMMARY | 2024-08-12 16:21 | XMS_ITS | Referral Summary ---
Author Organization [facility] Address [address] [place] [address] Phone Care Team Providers Care Production Control Scheduler Name Role Phone Kristen Brown Primary Care [...] TIMES DAILY NEEDED FOR ITCHING 4 Active SCREENER OPERATOR Thyroid 30 mg tablet Take 1 tablet [...] Comments Blood Pressure 116/84 04/08/2024 9:50 AM CHARGE ENTRY Pulse 70 04/08/2024 9:50 AM CHARGE ENTRY Temperature 36.7 C (98.1 F) 04/08/2024 9:50 AM CHARGE ENTRY Respiratory Rate - - Oxygen Saturation - - Inhaled Oxygen Concentration - - Weight 131.2 kg (289 lb 3.2 oz) 04/08/2024 9:50 AM CHARGE ENTRY Height 160 cm (5' 3 ) 04/08/2024 9:50 AM CHARGE ENTRY Body Mass Index 51.23 04/08/2024 9:50 AM CHARGE ENTRY Plan of Treatment Not on file Insurance [facility] Care Teams Production Control Scheduler Relationship Specialty Start Date End Date Kristen Brown PA [address] [facility] [address] [place] [address] PCP - General Physician Dish Cloth Inspector 04/04/24
--- OUTSIDE RECORDS SUMMARY | 2024-08-12 16:21 | XMS_ITS | Clinical Summary ---
Author Organization [facility] Address [address] [place] [address] Care Team Providers Care Disease Case Manager Rn Name Role Phone None, Provider MD Primary [...] Comments Blood Pressure 127/106 03/28/2023 12:41 PM MIXER WHIPPED TOPPING Pulse 99 03/28/2023 12:41 PM MIXER WHIPPED TOPPING Temperature 36.9 C (98.5 F) 03/28/2023 12:41 PM MIXER WHIPPED TOPPING Respiratory Rate 20 03/28/2023 12:4 1 PM MIXER WHIPPED TOPPING Oxygen Saturation 99% 03/28/2023 12: 41 PM MIXER WHIPPED TOPPING Inhaled Oxygen Concentration - - Weight 136.8 kg (301 lb 9.4 oz) 023 12:43 PM MIXER WHIPPED TOPPING Height 160 cm (5' 3 ) 03/28/2023 12:41 PM MIXER WHIPPED TOPPING Body Mass Index 53.42 03/28/2023 12:41 PM MIXER WHIPPED TOPPING Plan of Treatment Health Maintenance Due Date [...] patient's age to complete this topic Insurance [employer] Care Teams Disease Case Manager Rn Relationship Specialty Start Date End Date None, Provider, PCP - General 05/26/21
[2024-08-12 18:45] LABS: Alanine Aminotransferase 26 U/L (6-35); Albumin Level 4.6 g/dL (3.5-5.1); Alkaline Phosphatase 89 U/L (38-126); Anion Gap 9 mmol/L (4-12); Aspartate Amino Transferase 29 U/L (14-36); Bilirubin,Total 0.7 mg/dL (0.2-1.3); Blood Urea Nitrogen 18 mg/dL (7-17); Calcium 9.8 mg/dL (8.4-10.2); Carbon Dioxide 30 mmol/L (22-30); Chloride 99 mmol/L (98-107); Estimated Glomerular Filt Rate > 60; Glucose 90 mg/dL (65-110); Potassium 4.3 mmol/L (3.4-5.0); Sodium 138 mmol/L (137-145)
[2024-08-12 19:01] LABS: Free T3 3.39 pg/mL (2.71-6.16); Free T4 Free Thyroxine 0.86 ng/dL (0.78-2.19)
== END 2024-08-12 14:49 | disposition home or self-care (01) ==
LOC: ANHGOSHLAB 14:52
PROVIDERS: PCP Family Medicine; Visit Provider Physician Assistant
DX: E07.9 Disorder of thyroid, unspecified (principal); R74.8 Abnormal levels of other serum enzymes
CPT/HCPCS: 36415; 80053; 84439; 84443; 84481

== ENCOUNTER 2024-10-12 10:30 | Outpatient (CLI) | payer OTHER, SELFPAY ==
--- OUTSIDE RECORDS SUMMARY | 2024-10-12 10:32 | XMS_ITS | Referral Summary ---
Author Organization [facility] Address [address] [place] [address] Phone Care Team Providers Care Gas Appliance Servicer Name Role Phone Kristen Brown Primary Care [...] TIMES DAILY NEEDED FOR ITCHING 4 Active STEWARD/STEWARDESS WINE Thyroid 30 mg tablet Take 1 tablet [...] Comments Blood Pressure 116/84 04/08/2024 9:50 AM RAG INSPECTOR Pulse 70 04/08/2024 9:50 AM RAG INSPECTOR Temperature 36.7 C (98.1 F) 04/08/2024 9:50 AM RAG INSPECTOR Respiratory Rate - - Oxygen Saturation - - Inhaled Oxygen Concentration - - Weight 131.2 kg (289 lb 3.2 oz) 04/08/2024 9:50 AM RAG INSPECTOR Height 160 cm (5' 3) 04/08/2024 9:50 AM RAG INSPECTOR Body Mass Index 51.23 04/08/2024 9:50 AM RAG INSPECTOR Plan of Treatment Not on file Insurance [facility] Care Teams Gas Appliance Servicer Relationship Specialty Start Date End Date Kristen Brown PA [address] [facility] [address] [place] [address] PCP - General Physician Acid Patroller 04/04/24
--- OUTSIDE RECORDS SUMMARY | 2024-10-12 10:32 | XMS_ITS | Continuity of Care Document ---
Author Organization [facility] Address [address] [place] [address] [place] [address] Phone Care Team Providers Care Plant Technical Specialist Name Role Phone Dilip Mariscal MD Unavailable Unavailable Allergies, Adverse Reactions, Alerts Substance Reaction Status Criticality No Known Allergies Active No Inform ation Medications Medication Instructions Dosage Effective Dates (start - stop) Status Comments Lamictal 100 mg tablet take 1 tablet (100MG) by oral route every day 100 MG - Active Celexa 40 mg tablet take 1 tablet (40MG) by oral route every day 40 MG - Active Procedures Procedure Date OFFICE/OUTPATIENT VISIT, EST OFFICE/OUTPATIENT VISIT, EST PREV VISIT, NEW, AGE 18-39 Advance Directives Directive Yes / No Effective Date File Name No Information Encounters Encounter Description Practice Location Reason(s) For Visit Diagnoses Date Provider Providers Copied on Encounter [facility], [address] [place], [id number], tel:[phone] [facility] No Information 4 Davey Cherry. [address], [place], [place], [id number] , [place]. tel:[phone] Referring Provider: Dilip Mariscal, [address], [place], [place], [id number]. tel:[phone] OFFICE/OUTPA TIENT VISIT, EST [facility], [address], [place], [place], [id number], tel:[phone] [facility] amenorrhea (chief complaint)a nxiety (chief complaint)v itamin D (chief complaint) Absence of menstruationMenopa usal DisorderMajor depressive affective disorder, single episode, mild degreeDietary surveillance and counseling 4 Davey Cherry. [address], [place], [place], [address] , [place]. tel:[phone] Referring Provider: Dilip Mariscal, [address], [place], [place], [id number]. tel:[phone] OFFICE/OUTPA TIENT VISIT, [facility], [address], [place], [place], [id number], [place] tel:[phone] [facility] depression (chief complaint) Dietary surveillance and counselingAbsence of menstruationMajor depressive affective disorder, single episode, mild degree 3 Davye Cherry. [address], [place], [place], [address] , [place]. tel:[phone] Referring Provider: [address], [place], [place], [address]. tel:[phone] PREV VISIT, NEW, AGE 18-39 [facility], [address], [place], [place], [address], [place] tel:[phone] [facility] Physical (chief complaint) Dietary surveillance and counselingRoutine Medical ExamRoutine Medical Exam 3 Davey Cherry. [address], [place], [place], [address] , [place]. tel:[phone] Referring Provider: [address], [place], [place], [address]. tel:[phone] Family History Family Member Type Diagnosis Age At Onset Father Problem (finding) Alive and well Sister Problem (finding) Alive and well Mother Problem (finding) bipolar, schizophrenia Payers Payer name Insurance type Covered democrat ID Authoriza tion(s) No Information Social History Type Description Quantity Date Captured Comments Sex Female Smoking Status No Information Chief Complaint And Reason For Visit No Information Plan Of Treatment Date Type Action Status Goal Tobacco cessation counseling completed Referral Ordered: US, PELVIC (NONOBSTETRIC); ordered History Of Present Illness Encounter Date Complaint History Of Prese nt Illness No Information Instructions Date Instruction Additional Infor linda Decrease caloric intake Related to Dietary surveillance counseling Dietary counseling Related to Di etary surveillance counseling Decrease caloric intake Related to Dietary surveillance counseling Dietary counseling Related to Di etary surveillance counseling Quit smoking. Related to Routi ne Medical Exam Perform monthly self breast examinations. Related to Routine Medical Exam Decrease caloric intake Related to Dietary surveillance counseling Dietary counseling Related to Di etary surveillance counseling Increase activity. Related to Ro utine Medical Exam Assessments Type Assessment Date No Information
--- OUTSIDE RECORDS SUMMARY | 2024-10-12 10:32 | XMS_ITS | Continuity of Care Document ---
Author Organization [facility] Address [address] [place] [address] Phone Care Team Providers Care Farm Equipment Mechanic Name Role Phone Meño Cortes MD Unavailable Unavailable Allergies, Adverse Reactions, Alerts Substance Reaction Status Criticality No Known Allergies Active No Inform ation Medications Medication Instructions Dosage Effective Dates (start - stop) Status Comments loratadine 10 mg tablet take 1 tablet by oral route 2 times every day 10 MG - Active levothyroxine 88 mcg tablet take as directed - Active albuterol sulfate HFA 90 mcg/actuation aerosol inhaler take as directed - Active clobetasol 0.05 % topical cream take as directed - No Longer Active citalopram 10 mg tablet TAKE 1 TABLET BY MOUTH ONCE DAILY - No Longer Active triamcinolone acetonide 0.1 % topical cream APPLY CREAM TOPICALLY TWICE DAILY - No Longer Active estradiol-norethindro ne acet 1 mg-0.5 mg tablet TAKE 1 TABLET BY MOUTH ONCE DAILY - No Longer Active ergocalciferol (vitamin D2) 1,250 mcg (50,000 unit) capsule TAKE 1 CAPSULE BY MOUTH TWICE A WEEK - No Longer Active Procedures Procedure Date New (Level 4) OFFICE/OUTPATIENT VISIT No Advance Directives Directive Yes / No Effective Date File Name No Information Encounters Encounter Description Practice Location Reason(s) For Visit Diagnoses Date Provider Providers Copied on Encounter New (Level 4) OFFICE/OUTPA TIENT VISIT [facility], [address] [place] [address], [id number], tel:[phone] [facility] rash (chief complaint) Body mass index (BMI) 50.0-59.9, adultRashUrticar iaPruritus 4 Sophia Cheshil. [address] [place], [address], [place]. tel:[phone] Referring Provider: Christel Hartmann, [facility] [place], [address]. tel:[phone] [facility], [address] [place] [address], [id number], tel:[phone] [facility] No Information 4 Sophia Cheshil. [address] [place], [address], [place]. tel:[phone] Family History Family Member Type Diagnosis Age At Onset Paternal aunt Problem Thyroid disorder Problem No family history of Rheumat oid arthritis Problem No family history of Systemi c lupus erythematosus Problem No family history of Asthma Problem No family history of Rhiniti s Payers Payer name Insurance type Covered republican ID Viky pierce(s) Sal[place] [id number] Social History Type Description Quantity Date Captured Comments Alcohol Use Details Unknown Caffeine Use Details Unknown Tobacco Use Status No Information Smoking Status Never smoker Occupat ion: Patient AccessLives in a house w/ central air/forced heat, w/o evidence of mold/water damageFlooring in Bedroom: carpetPets: none Non-Smoking Tobacco Use Details : No Details Available : No Details Available Sex Female Gender Identity Vital Signs Date / Time: Height Weight BMI Pulse Rate Blood Pressure Temperature Respiratory Rate Body Surface Area Head Circumference Head Circ. Percentile Wt./Neil. Percentile BMI percentile Pulse Ox Inhaled Ox 2:39 PM 63.00 in 132.630 kg (292.40 lbs) 51.8 0 kg/m eter (2) 82 /min 126/84 mm[Hg] 97.70 F 2.43 meter(2) 95 % Chief Complaint And Reason For Visit From encounter dated '03/26/2024 14:40'. rash (chief complaint). Description: She reports a rash that started in November 2023. She was evaluated by PCP who considered autoimmune disease (such as psoriasis) as the likely culprit. The rash has progressed since starting. It was initially on the rock and quite pruritic. She seems to have some lesions in the mouth as well. She describes purplish papules. After tanning in Dec 2023, the severity worsened. They are now also on the arms, back, neck, thighs (worst) and into her hair. The rashis persistently pruritic. She treats with OAH: most recently, loratadine (claritin) 10 mg daily. She has had some chills and fatigue, but no fevers. She does report joint pain in knees, hips, elbows,and wrists over the last few weeks. She has been evaluated by Dermatology, Shahbaz FERREIRA, at [facility]. They considered psoriasis as well. 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 She was started on Dupixent x 2 injections (02/29/24), reportedly for this condition, without improvement..She was also treated with topical steroids (Clobetasol) and oral steroids without benefit. She reports labwork completed prior to rash onset. She was found to have hypothyroidism and started levothyroxine (in October 2023). She stopped levothyroxine ~30 days ago to see if thisaffected the rash (no change to date). She was previously on citalopram but stopped before onset ofthe rash. She does not take an OTC medications like APAP, ibuprofen, etc. She is not on any supplements. She notes that labs also showed poor renal function and elevated liver enzymes, but a repeat was normal. UrticariaBryanhenry reports a history of intermittent urticaria over the last 3 years. Episodes can be generalized. At this time, she has not had an episode since November 2023 when the rash (above) st arted). She has treated with benadryl, but most often she goes to the ED and is treated with IM steroids.PMH: hypothyroidism PSH: cholecystectomyMedication Allergies:ASA - She reports dyspnea with ASA; however, she believes she has tolerated this without issue since that time.FHThyroid dz - pat auntNo FH of asthma, rhinitis, RA, SLESHTobacco: Never smoker Occupation: Patient AccessEnvironmental HistoryLives in a house w/ central air/forced heat, w/o evidence of mold/water damageFlooring in Bedroom: carpetPets: noneDataI reviewed outside records available in the EMR Reason For Referral Reason For Referral No Information History Of Present Illness Encounter Date Complaint History Of Prese nt Illness rash She reports a ra sh that started in November 2023. She was evaluated by PCP who considered autoimmune disease (such as psoriasis) as the likely culprit. The rash has progressed since starting. It was initially on the rock and quite pruritic. She seems to have some lesions in the mouth as well. She describes purplish papules. After tanning in Dec 2023, the severity worsened. They are now also on the arms, back, neck, thighs (worst) and into her hair. The rash is persistently pruritic. She treats with OAH: most recently, loratadine (claritin) 10 mg daily. She has had some chills and fatigue, but no fevers. She does report joint pain in knees, hips, elbows, and wrists over the last few weeks. She has been evaluated by Dermatology, Shahbaz FERREIRA, at [facility]. They considered psoriasis as well. 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 She was started on Dupixent x 2 injections (02/29/24), reportedly for this condition, without improvement..She was also treated with topical steroids (Clobetasol) and oral steroids without benefit. She reports labwork completed prior to rash onset. She was found to have hypothyroidism and started levothyroxine (in October 2023). She stopped levothyroxine ~30 days ago to see if this affected the rash (no change to date). She was previously on citalopram but stopped before onset of the rash. She does not take an OTC medications like APAP, ibuprofen, etc. She is not on any supplements. She notes that labs also showed poor renal function and elevated liver enzymes, but a repeat was normal. Vy reports a history of intermittent urticaria over the last 3 years. Episodes can be generalized. At this time, she has not had an episode since November 2023 when the rash (above) started). She has treated with benadryl, but most often she goes to the ED and is treated with IM steroids.PMH: hypothyroidism PSH: cholecystectomyMedication Allergies:ASA - She reports dyspnea with ASA; however, she believes she has tolerated this without issue since that time.FHThyroid dz - pat auntNo FH of asthma, rhinitis, RA, SLESHTobacco: Never smoker Occupation: Patient AccessEnvironmental HistoryLives in a house w/ central air/forced heat, w/o evidence of mold/water damageFlooring in Bedroom: carpetPets: noneDataI reviewed outside records available in the EMR Functional Status Date Functional Assessmen t No Information Instructions Date Instruction Additional Infor mation Giving encouragement to exercise Related to Body mass index [BMI] 50.0-59.9, adult Assessments Type Assessment Date assessment Body mass index (BMI) 50.0-59.9, adult assessment Rash assessment Urticaria assessment Pruritus Patient Care Teams Name Effective Dates (start - stop) Status Members No Information
--- OUTSIDE RECORDS SUMMARY | 2024-10-12 10:32 | XMS_ITS | Clinical Summary ---
Author Organization [facility] Address [address] [place] [address] Phone Care Team Providers Care Lining Parts Sewer Name Role Phone Kristen Brown Primary Care [...] TIMES DAILY NEEDED FOR ITCHING 4 Active MANAGER PERSONNEL SELECTION Thyroid 30 mg tablet Take 1 tablet [...] Comments Blood Pressure 116/84 04/08/2024 9:50 AM RESIDENTIAL REAL ESTATE APPRAISER Pulse 70 04/08/2024 9:50 AM RESIDENTIAL REAL ESTATE APPRAISER Temperature 36.7 C (98.1 F) 04/08/2024 9:50 AM RESIDENTIAL REAL ESTATE APPRAISER Respiratory Rate - - Oxygen Saturation - - Inhaled Oxygen Concentration - - Weight 131.2 kg (289 lb 3.2 oz) 04/08/2024 9:50 AM RESIDENTIAL REAL ESTATE APPRAISER Height 160 cm (5' 3) 04/08/2024 9:50 AM RESIDENTIAL REAL ESTATE APPRAISER Body Mass Index 51.23 04/08/2024 9:50 AM RESIDENTIAL REAL ESTATE APPRAISER Plan of Treatment Health Maintenance Due Date [...] patient's age to complete this topic Insurance [facility] Care Teams Lining Parts Sewer Relationship Specialty Start Date End Date Kristen Brown PA [address] [facility] [address] [place] [address] PCP - General Physician Salon Stylist 04/04/24
[2024-10-12 10:50] LABS: Basophils Absolute Auto 0.1 K/mm3 (0.0-0.1); Basophils Percent Auto 0.7 % (0.2-1.2); Eosinophils Absolute Auto 0.2 K/mm3 (0-0.3); Eosinophils Percent Auto 2.6 % (0-4.4); Hemoglobin 13.7 g/dL (12.0-15.0); Immature Granulocyte Absolute 0.04 K/mm3 (0.00-0.031); Immature Granulocyte Percent A 0.6 % (0-0.5); Lymphocytes Absolute Auto 2.37 K/mm3 (0.9-3.2); Lymphocytes Percent Auto 32.7 % (18.3-44.2); Mean Corpuscular HGB Conc 32.6 g/dl (32-36); Mean Corpuscular Hemoglobin 29.7 pg (26-34); Mean Corpuscular Volume 90.9 fl (80-100); Mean Platelet Volume 8.8 fl (7.4-10.4); Monocytes Absolute Auto 0.5 K/mm3 (0.1-0.6); Monocytes Percent Auto 6.6 % (2.6-8.5); Neutrophils Absolute Auto 4.1 K/mm3 (1.3-6.7); Neutrophils Percent Auto 56.8 % (45.5-73.1); Platelet Count Result 302 k/mm3 (150-375); Red Blood Count 4.62 M/mm3 (4.2-5.4); Red Cell Distribution Width 12.9 % (11.5-14.5); White Blood Count 7.3 K/mm3 (4.5-10.0)
[2024-10-12 11:01] LABS: Hemoglobin A1C 4.9 % (<5.7)
[2024-10-12 11:06] LABS: Alanine Aminotransferase 20 U/L (6-35); Albumin Level 4.3 g/dL (3.5-5.1); Alkaline Phosphatase 91 U/L (38-126); Anion Gap 6 mmol/L (4-12); Aspartate Amino Transferase 27 U/L (14-36); Bilirubin,Total 0.6 mg/dL (0.2-1.3); Blood Urea Nitrogen 9 mg/dL (7-17); Calcium 9.7 mg/dL (8.4-10.2); Carbon Dioxide 30 mmol/L (22-30); Chloride 105 mmol/L (98-107); Cholesterol 199 mg/dL (0-200); Estimated Glomerular Filt Rate > 60; Glucose 92 mg/dL (65-110); HDL Direct 50 mg/dL; Potassium 4.4 mmol/L (3.4-5.0); Sodium 141 mmol/L (137-145); Triglycerides 106 mg/dL (<150)
[2024-10-12 11:16] LABS: LDL Cholesterol Direct 91 mg/dL
[2024-10-12 11:29] LABS: Free T4 Free Thyroxine 0.71 ng/dL (0.78-2.19)
[2024-10-12 11:39] LABS: Total Triiodothyronine (T3) 1.25 NG/ML (0.82-1.58)
[2024-10-14 17:03] LABS: Thyroid Peroxidase Antibodies. 175 IU/mL (<9)
== END 2024-10-12 10:31 | disposition home or self-care (01) ==
LOC: ANHLAB 10:31
PROVIDERS: PCP Family Medicine; Visit Provider Physician Assistant
DX: E07.9 Disorder of thyroid, unspecified (principal); R21 Rash and other nonspecific skin eruption; R53.83 Other fatigue; Z13.1 Encounter for screening for diabetes mellitus; Z13.220 Encounter for screening for lipoid disorders
CPT/HCPCS: 36415; 80053; 80061; 83036; 84439; 84443; 84480; 85025; 86376

== ENCOUNTER 2024-12-12 08:15 | Outpatient (CLI) | payer OTHER, SELFPAY ==
--- OUTSIDE RECORDS SUMMARY | 2024-12-12 08:19 | XMS_ITS | Continuity of Care Document ---
Author Organization [facility] Address [address] [place] [address] Phone Care Team Providers Care Reactor Fueling Supervisor Name Role Phone Meño Cortes MD Unavailable [...] VISIT [facility], [address] [place] [address], [id number], tel:[phone] [facility] rash (chief complaint) Body mass index (BMI) 50.0-59.9, adultRashUrticar iaPruritus 4 Sophia Cheshil. [address] [place], [address], [place]. tel:[phone] Referring Provider: Christel Hartmann, [facility] [place], [address]. tel:[phone] [facility], [address] [place] [address], [id number], tel:[phone] [facility] No Information 4 Sophia Cheshil. [address] [place], [address], [place]. tel:[phone] Family History Family Member Type Diagnosis Age At Onset Paternal aunt Problem Thyroid disorder Problem No family history of Rheumat oid arthritis Problem No family history of Systemi c lupus erythematosus Problem No family history of Asthma Problem No family history of Rhiniti s Payers Payer name Insurance type Covered constitution party ID Viky pierce(s) Sal[place] [id number] Social History Type Description Quantity Date Captured [...] been evaluated by Dermatology, Shahbaz FERREIRA, at [facility]. They considered psoriasis as well. [...] been evaluated by Dermatology, Shahbaz FERREIRA, at [facility]. They considered psoriasis as well. [...]
--- OUTSIDE RECORDS SUMMARY | 2024-12-12 08:19 | XMS_ITS | Clinical Summary ---
Author Organization [facility] Address [address] [place] [address] Phone Care Team Providers Care Biodiesel Plant Operations Engineer Name Role Phone Kristen Brown Primary Care [...] TIMES DAILY NEEDED FOR ITCHING 4 Active CASH SALES AUDIT CLERK Thyroid 30 mg tablet Take 1 tablet [...] Comments Blood Pressure 116/84 04/08/2024 9:50 AM ACCOUNT EXECUTIVE TRAINEE Pulse 70 04/08/2024 9:50 AM ACCOUNT EXECUTIVE TRAINEE Temperature 36.7 C (98.1 F) 04/08/2024 9:50 AM ACCOUNT EXECUTIVE TRAINEE Respiratory Rate - - Oxygen Saturation - - Inhaled Oxygen Concentration - - Weight 131.2 kg (289 lb 3.2 oz) 04/08/2024 9:50 AM ACCOUNT EXECUTIVE TRAINEE Height 160 cm (5' 3) 04/08/2024 9:50 AM ACCOUNT EXECUTIVE TRAINEE Body Mass Index 51.23 04/08/2024 9:50 AM ACCOUNT EXECUTIVE TRAINEE Plan of Treatment Health Maintenance Due Date Last Done Comments Breast Cancer Screening-Mammogram 1981 Cervical Cancer Screening 1981 Depression Screening 1981 Hepatitis C Screening 1981 DTaP/Tdap/Td Vaccine (1 - Tdap) 1992 Varicella Vaccines (1 of 2 - 13+ 2-dose series) 1994 Hepatitis B Screening 1999 Regular Well Visit/Exam 18-64 1999 HPV Vaccines (1 - 3-dose SCD M series) 2008 Influenza Vaccine (#1) 2025 02/15/2024 Pneumococcal vaccine <65 Aged Out No longer eligible based on patient's age to complete this topic Insurance [employer] Care Teams Biodiesel Plant Operations Engineer Relationship Specialty Start Date End Date Kristen Brown PA [address] [email or web address] [address] [place] [address] PCP - General Physician Gynecological Assistant 04/04/24
--- OUTSIDE RECORDS SUMMARY | 2024-12-12 08:19 | XMS_ITS | Continuity of Care Document ---
Author Organization [facility] Address [address] [place] [address] [place] [address] Phone Care Team Providers Care Washing Machine Mechanic Name Role Phone Dilip Mariscal MD Unavailable [...] Diagnoses Date Provider Providers Copied on Encounter [facility], [address] [place], [place], [id number], tel:[phone] [facility] No Information 4 Davey Cherry. [address], [place], [place], [id number] , [place]. tel:[phone] Referring Provider: Dilip Mariscal, [address], [place], [place], [id number]. tel:[phone] OFFICE/OUTPA TIENT VISIT, EST [facility], [address], [place], [place], [id number], tel:[phone] [facility] amenorrhea (chief complaint)a nxiety (chief complaint)v itamin D (chief complaint) Absence of menstruationMenopa usal DisorderMajor depressive affective disorder, single episode, mild degreeDietary surveillance and counseling 4 Davey Cherry. [address], [place], [place], [id number] , [place]. tel:[phone] Referring Provider: Dilip Mariscal, [address], [place], [place], [id number]. tel:[phone] OFFICE/OUTPA TIENT VISIT, [facility], [address], [place], [place], [id number], [place] tel:[phone] [facility] depression (chief complaint) Dietary surveillance and counselingAbsence of menstruationMajor depressive affective disorder, single episode, mild degree 3 Davey Cherry. [address], [place], [place], [id number] , [place]. tel:[phone] Referring Provider: [address], [place], [place], [id number]. tel:[phone] PREV VISIT, NEW, AGE 18-39 [facility], [address], [place], [place], [id number], [place] tel:[phone] [facility] Physical (chief complaint) Dietary surveillance and counselingRoutine Medical ExamRoutine Medical Exam 3 Davey Cherry. [address], [place], [place], [id number] , [place]. tel:[phone] Referring Provider: [address], [place], [place], [id number]. tel:[phone] Family History Family Member Type Diagnosis Age At Onset Father Problem (finding) Alive and well Sister Problem (finding) Alive and well Mother Problem (finding) bipolar, schizophrenia Payers Payer name Insurance type Covered republican ID Authoriza tion(s) No Information Social History [...]
--- OUTSIDE RECORDS SUMMARY | 2024-12-12 08:19 | XMS_ITS | Referral Summary ---
Author Organization [facility] Address [address] [place] [address] Phone Care Team Providers Care Virtual Assistant Name Role Phone Kristen Brown Primary Care [...] TIMES DAILY NEEDED FOR ITCHING 4 Active BANK VAULT ATTENDANT Thyroid 30 mg tablet Take 1 tablet [...] Comments Blood Pressure 116/84 04/08/2024 9:50 AM HAIR AND MAKEUP DESIGNER Pulse 70 04/08/2024 9:50 AM HAIR AND MAKEUP DESIGNER Temperature 36.7 C (98.1 F) 04/08/2024 9:50 AM HAIR AND MAKEUP DESIGNER Respiratory Rate - - Oxygen Saturation - - Inhaled Oxygen Concentration - - Weight 131.2 kg (289 lb 3.2 oz) 04/08/2024 9:50 AM HAIR AND MAKEUP DESIGNER Height 160 cm (5' 3) 04/08/2024 9:50 AM HAIR AND MAKEUP DESIGNER Body Mass Index 51.23 04/08/2024 9:50 AM HAIR AND MAKEUP DESIGNER Plan of Treatment Not on file Insurance [facility] Care Teams Virtual Assistant Relationship Specialty Start Date End Date Kristen Brown PA [address] [place] [address] PCP - General Physician Director Of Retail 04/04/24
[2024-12-12 13:32] LABS: Free T4 Free Thyroxine 1.45 ng/dL (0.78-2.19)
[2024-12-12 13:38] LABS: Thyroid Stimulating Hormone 0.735 uIU/mL (0.465-4.680)
== END 2024-12-12 08:16 | disposition home or self-care (01) ==
LOC: ANHGOSHLAB 08:16
PROVIDERS: PCP Family Medicine; Visit Provider Student in an Organized Health Care Education/Training Program
DX: E03.9 Hypothyroidism, unspecified (principal)
CPT/HCPCS: 36415; 84439; 84443